=== PATIENT | male | born 1975 | race Two or more races ===

== ENCOUNTER 2022-10-27 19:48 | Emergency (ER) | payer MEDICAID ==
[~2022-10-27] VITALS: Ht 172.7 cm; Wt 59.0 kg
[2022-10-27 20:21] VITALS: TEMP 98.6
[2022-10-27 20:31] LABS: HEMOGLOBIN 14.1 g/dL (13.5-17.5); MONOCYTES # (AUTO) 0.5 K/uL (0.1-1.0); NEUTROPHILS # (AUTO) 5.6 K/uL (1.8-7.7); RED BLOOD CELL COUNT(AUTO) 4.61 MIL/uL (4.50-5.90)
[2022-10-27 20:36] LABS: BASOPHILS % (AUTO) 0.3 % (0.0-2.0); EOSINOPHILS % (AUTO) 2.2 % (1.0-6.0); HEMATOCRIT 42.9 % (41-53); LYMPHOCYTES # (AUTO) 1.5 K/uL (1.0-4.8); LYMPHOCYTES % (AUTO) 19.6 % (22.0-44.0); MEAN CORPUSCULAR HEMOGLOBIN 30.7 pg (26.0-34.0); MEAN CORPUSCULAR HGB CONC 32.9 G/dL (31.0-37.0); MEAN CORPUSCULAR VOLUME 93 fL (80-100); MONOCYTES % (AUTO) 6.9 % (2.0-9.0); RED CELL DISTRIBUTION WIDTH 14.1 % (11.5-14.5)
[2022-10-27 20:41] LABS: ANION GAP 9 mmol/L (8-16); CARBON DIOXIDE 29 mmol/L (22-29); CHLORIDE 99 mmol/L (98-107); CREATININE 0.93 mg/dL (0.60-1.30); GLOMERULAR FILTR. RATE CALC > 60 mL/min (>60); GLUCOSE,RANDOM 146 mg/dL (70-110); POTASSIUM 3.5 mmol/L (3.5-5.1); SODIUM SERUM 137 mmol/L (136-145)
[2022-10-27 20:46] LABS: ALANINE AMINOTRANSFERASE 51 U/L (12-78); ALKALINE PHOSPHATASE 132 U/L (46-116); ASPARTATE AMINOTRANSFERASE 56 U/L (15-37); BILIRUBIN,TOTAL 0.4 mg/dL (0.1-1.0); TOTAL PROTEIN, SERUM 7.9 g/dL (6.4-8.2)
[2022-10-27 21:07] LABS: PLATELET COUNT (AUTO) 160 K/uL (150-450)
[2022-10-27 23:59] VITALS: BP 136/72; PULSE 64; RESP 18
== END 2022-10-28 00:01 | disposition home or self-care (01) ==
LOC: EMS 19:50
DX: R07.89 Other chest pain (principal)
CPT/HCPCS: 71045; 80053; 84484; 85025; 93005; 99285; 36415-L1; 36415-TC